=== PATIENT | female | born 1950 | race African-American/Black ===

== ENCOUNTER 2016-07-27 08:50 | Day surgery (SDC) | payer BC, MEDICARE ==
--- NOTE | 2016-07-21 14:30 | HISTORY AND PHYSICAL E ---
History and Physical NAME: ELIZABETH ASHER : 1950 AGE: 65Y ADMITTED: 07/27/2016 ROOM: Presented for colon screening. Patient does have hypertension. CHIEF COMPLAINT: Colon screening. REVIEW OF SYSTEMS: Hypothyroid, on thyroid replacement. Hypertension: Norvasc, clonidine. PHYSICAL EXAMINATION: VITAL SIGNS: Blood pressure 130/80, pulse 80, respirations 22, temp is 98. HEAD, EYES, EARS, NOSE, THROAT: Normal. NECK: Supple. LUNGS: Clear. ABDOMEN: Soft. NEUROLOGIC: Exam negative. CONCLUSION: 1. COLON SCREENING. 2. HYPERTENSION. PLAN: 1. COLON EXAM. 2. COLON SCREEN FOR 08/01/2016. DICTATING PHYSICIAN: DEL SANCHEZ M.D. [id number] [id number] PHY#: [id number] ID: [id number] JOB#: [id number] ACCT: [id number] cc:DEL SANCHEZ M.D., MILAGROS M.D. >
--- NOTE | 2016-07-22 13:53 | HISTORY AND PHYSICAL E ---
History and Physical NAME: ELIZABETH ASHER : 1950 AGE: 65Y ADMITTED: 07/27/2016 ROOM: The patient presented for colonoscopy scheduled 07/27. CHIEF COMPLAINT: Polyps. Patient due for followup colonoscopy, history of adenoma polyps. Patient did have colon December shows rectal sigmoid polyps and hemorrhoids. Patient did have another colonoscopy done 2010 showing polyps. At this time, patient for followup colonoscopy. He was supposed to see us a few years ago but he presented at this time. I saw on 04/27. At this time, patient for follow colon exam. History of polyps. PHYSICAL EXAMINATION: VITAL SIGNS: Blood pressure 130/80, pulse 80, respirations 20, temp 98. HEENT: Normal. ABDOMEN: Soft. NEUROLOGIC: Exam negative. CONCLUSION: Colorectal polyps. PLAN: Colonoscopy. REVIEW OF SYSTEMS: Shows as follows: Patient's medications, poor blood pressure clonidine, amlodipine. Patient is on thyroid medications. CONCLUSION: Colon exam scheduled for 07/27. The patient presented regarding colon exam. History of polyps. Conclusion system. Hypertension, hypotension. PLAN: Colon exam. DICTATING PHYSICIAN: DEL SANCHEZ M.D. [id number] [id number] PHY#: [id number] ID: [id number] JOB#: [id number] ACCT: [id number] cc:DEL SANCHEZ M.D. >
[2016-07-27] MEDS ORDERED: ONDANSETRON HCL INJ/PF 4 MG/2 ML SDV ONE (09:17)
[2016-07-27] MEDS ORDERED: LIDOCAINE 2% JELLY 30 ML TUBE ONE (09:17)
[2016-07-27] MEDS ORDERED: MIDAZOLAM 2 MG/2 ML INJ ONE ×2 (09:17)
[2016-07-27] MEDS ORDERED: GLYCOPYRROLATE INJ 0.4 MG/2 ML VIAL ONE (09:17)
[2016-07-27] MEDS ORDERED: NALOXONE HCL INJ/PF 0.4 MG/1 ML SDV ONE (09:17)
[2016-07-27] MEDS ORDERED: EPINEPHRINE INJ 1 MG/10 ML DISP.SYRIN ONE (09:18)
[2016-07-27] MEDS ORDERED: FLUMAZENIL INJ 0.5 MG/5 ML VIAL IV ONE (09:18)
[2016-07-27] MEDS ORDERED: GLUCAGON,HUMAN RECOMB 1 MG INJ ONE (09:18)
[2016-07-27] MEDS: FENTANYL CITRATE INJ/PF 100 MCG/2 ML AMPUL ONE ×3 (09:35→10:00)
--- NOTE | 2016-07-27 10:33 | OPERATIVE REPORT E ---
Operative Report NAME: ELIZABETH ASHER : 1950 AGE: 65Y DATE OF SURGERY: ROOM: PREOPERATIVE DIAGNOSIS: The patient is a 65-year-old female for colon screening. POSTOPERATIVE DIAGNOSIS: Diminutive rectosigmoid polyps too small to biopsy. OPERATION: Colonoscopy. SURGEON: DEL SANCHEZ M.D. FINDINGS: I was unable to see the cecum. I was unable to reach the cecum straightening the scope twice. Patient has very redundant colon, transverse colon, very redundant high splenic, high hepatic. PROCEDURE: Rectal exam: Mild external hemorrhoids. Rectosigmoid: Diminutive polyps. Descending colon, normal. Transverse colon, normal. Ascending colon, normal. Cecum was not visualized. Moderate amount of stool, inadequate prep. CONCLUSION: Rectosigmoid polyps, benign, small to biopsy, redundant colon. Unable to visualize the cecum. PLAN: Consider barium enema after 2 months. *------* DICTATING PHYSICIAN: DEL SANCHEZ M.D. [id number] [id number] Y#: [id number] ID: [id number] JOB#: [id number] ACCT: [id number] cc:DEL SANCHEZ M.D. >
[2016-07-27 11:08] VITALS: BP 121/69
[2016-07-27 11:23] LABS: ABSOLUTE EOSINOPHILS # (AUTO) 0.5 10^3/uL (0.0-0.6); ABSOLUTE LYMPHOCYTES (AUTO) 1.7 10^3/uL (0.5-4.7); ABSOLUTE MONOCYTES (AUTO) 0.5 10^3/uL (0.1-1.4); ABSOLUTE NEUT (AUTO) 5.7 10^3/uL (1.7-8.2); BASOPHILS % (AUTO) 0.3 % (0-2); EOSINOPHILS % (AUTO) 6.1 % (0-6); HEMATOCRIT 34.4 % (36.0-47.0); HEMOGLOBIN 11.3 g/dL (12.0-15.5); HGB HCT DIFFERENCE -0.5; LYMPHOCYTES % (AUTO) 20.1 % (13-45); MEAN CORPUSCULAR HEMOGLOBIN 30.1 pg (27.0-33.4); MEAN CORPUSCULAR HGB CONC 32.7 g/dL (32.0-36.0); MEAN CORPUSCULAR VOLUME 92 fl (80-97); MONOCYTES % (AUTO) 5.7 % (3-13); RED BLOOD COUNT 3.74 10^6/uL (3.72-5.28); RED CELL DISTRIBUTION WIDTH 13.8 % (11.5-14.0); SEGMENTED NEUTROPHILS % (AUTO) 67.8 % (42-78); WHITE BLOOD COUNT 8.5 10^3/uL (4.0-10.5)
[2016-07-27 11:48] LABS: IRON 47.9 ug/dL (37-170)
--- NOTE | 2016-07-27 14:02 | DISCHARGE SUMMARY E ---
Discharge Summary NAME: ELIZABETH ASHER : 1950 AGE: 65Y ADMITTED: 07/27/2016 DISCHARGED: 07/27/2016 HOSPITAL COURSE: The patient underwent colonoscopy today, which was successful to the cecum, but not into the cecum. The cecum was not visualized. The patient has a redundant colon, inadequate prep, large amount of stool. PLAN: 1. Baseline CBC, CEA. 2. Consider barium enema after 2-3 months. 3. Full liquids today. We reached the cecum, but we did not get into the cecum because of redundancy of the transverse ascending colon. FINAL DIAGNOSIS: Benign rectosigmoid polyps. DICTATING PHYSICIAN: DEL SANCHEZ M.D. [id number] [id number] PHY#: [id number] ID: [id number] JOB#: [id number] ACCT: [id number] cc:DEL SANCHEZ M.D. >
== END 2016-07-27 11:25 | disposition home or self-care (01) ==
LOC: END 08:50
PROVIDERS: ATTEND Specialist
PROC: 0DJD8ZZ Inspection of Lower Intestinal Tract, Via Natural or Artificial Opening Endoscopic (ICD-10-PCS; principal; 2016-07-27 09:00)
DX: Z12.11 Encounter for screening for malignant neoplasm of colon (principal); D12.7 Benign neoplasm of rectosigmoid junction; K64.4 Residual hemorrhoidal skin tags; Q43.8 Other specified congenital malformations of intestine; E03.9 Hypothyroidism, unspecified; I10 Essential (primary) hypertension; Z79.899 Other long term (current) drug therapy
CPT/HCPCS: 36415; 82378; 82728; 83540; 85025; G0121; J2250; J3010; J1610; 45378; J0171; J2310; J2405; J3490

== ENCOUNTER → 2017-07-21 | Outpatient (CLI) | payer MEDICARE ==
--- NOTE | 2017-07-21 14:18 | WOMENS IMAGING REPORT ---
EXAM DESCRIPTION: 3D SCREENING MAMMO BILAT COMPLETED DATE/TIME: 07/21/2017 1:24 pm REASON FOR STUDY: ROUTINE SCREENING;Z12.31 Z12.31 ENCNTR SCREEN MAMMOGRAM FOR MALIGNANT NEOPLASM OF [place]IA COMPARISON: January 2016 and December 2014 TECHNIQUE: Standard craniocaudal and mediolateral oblique views of each breast recorded using digita l acquisition and breast tomosynthesis. LIMITATIONS: None. FINDINGS: No masses, calcifications or architectural distortion. No areas of suspicion. Read with the assistance of CAD. .[facility] - R2 [employer] Version 1.3 .[facility] Imaging - R2 Cenova Version 1.3 .[facility] Imaging - R2 Cenova Version 2.4 .[facility] - R2 Cenova Version 2.4 .[facility] - R2 [employer] Version 9.2 IMPRESSION: NORMAL MAMMOGRAM. BIRADS 1. BREAST DENSITY: b. There are scattered areas of fibroglandular density. BIRAD: 1 NEGATIVE RECOMMENDATION: ROUTINE SCREENING COMMENT: The patient has been notified of the results by letter per SA requirements. Additional no tification policies are in place for contacting patient with suspicious or incomplete findings. Quality ID #225: The [employer] recommends an annual screening mammogram for women aged 40 years or over. This facility utilizes a reminder system to ensure that all patients receive reminder letters, and/or direct phone calls for appointments. This includes reminders for routine scr eening mammograms, diagnostic mammograms, or other Breast Imaging Interventions when appropriate. Th is patient will be placed in the appropriate reminder system. The [employer] (ACR) has developed recommendations for screening MRI of the breast s in certain patient populations, to be used in conjunction with mammography. Breast MRI surveillanc e may be appropriate for women with more than 20% lifetime risk of developing breast cancer as deter mined by genetic testing, significant family history of the disease, or history of mantle radiation f or Hodgkins Disease. ACR Practice Guidelines 2008. DBT Technology DBT is a type of tomographic mammography. With conventional mammography, overlapping breast tissue ma y make lesions difficult to detect, even with good compression. DBT uses an x-ray tube that rotates a round the breast, taking images at different angles. These images are then combined to create thin sl ices of the breast that the radiologist can view as a 3D reconstruction. The [employer] unit can perform full-field digital mammograms (2D imaging); or DBT (3D imaging); or both, in a combination mode that quickly performs both the mammogram and the tomosynthesis scan while the breast is still compressed. PQRS 6045F: Fluoroscopic imaging is not utilized for breast tomosynthesis. TECHNICAL DOCUMENTATION: FINDING NUMBER: (1) ASSESSMENT: (1) JOB ID: [id number] [employer]- All Rights Reserved Reading location - IP/workstation name: [email or web address]
== END ==
LOC: WI 13:21
PROVIDERS: ATTEND Nurse Practitioner
DX: Z12.31 Encounter for screening mammogram for malignant neoplasm of breast (principal)
CPT/HCPCS: 77063; 77067

== ENCOUNTER → 2019-10-25 | Outpatient (CLI) | payer MEDICARE ==
--- NOTE | 2019-10-25 10:13 | WOMENS IMAGING REPORT ---
EXAM DESCRIPTION: 3D SCREENING MAMMO BILAT IMAGES COMPLETED DATE/TIME: 10/25/2019 9:41 am REASON FOR STUDY: Z12.31 ENCOUNTER FOR SCREENING MAMMOGRAM FOR MALIGNANT NEOPLASM OF BREAST Z12.31 ENCNTR SCREEN MAMMOGRAM FOR MALIGNANT NEOPLASM OF [place] COMPARISON: 2016 and subsequent. EXAM PARAMETERS: Views: Standard craniocaudal and mediolateral oblique views of each breast recorded using digital acquisition and breast tomosynthesis. Read with the assistance of CAD. .[facility] - [employer] Version 9.2 LIMITATIONS: None. FINDINGS: No suspicious masses, suspicious calcifications or architectural distortion. No areas of c oncern. IMPRESSION: NEGATIVE MAMMOGRAM. BIRADS 1. BREAST DENSITY: b. There are scattered areas of fibroglandular density. BIRAD: ASSESSMENT: 1 NEGATIVE RECOMMENDATION: ROUTINE SCREENING COMMENT: The patient has been notified of the results by letter per MQSA requirements. Additional no tification policies are in place for contacting patient with suspicious or incomplete findings. Quality ID #[id number]: The [employer] recommends an annual screening mammogram for women aged 40 years or over. This facility utilizes a reminder system to ensure that all patients receive reminder letters, and/or direct phone calls for appointments. This includes reminders for routine scr eening mammograms, diagnostic mammograms, or other Breast Imaging Interventions when appropriate. Th is patient will be placed in the appropriate reminder system. TECHNICAL DOCUMENTATION: FINDING NUMBER: (1) ASSESSMENT: (1) JOB ID: [id number] 2010 [employer]- All Rights Reserved Reading location - IP/workstation name: [email or web address]
== END ==
LOC: WI 08:59
PROVIDERS: ATTEND Nurse Practitioner
DX: Z12.31 Encounter for screening mammogram for malignant neoplasm of breast (principal)
CPT/HCPCS: 77063; 77067